=== PATIENT | male | born 2000 | race African-American/Black ===

== ENCOUNTER 2023-04-14 12:41 | Emergency (ER) | payer SELFPAY ==
[2023-04-14] MEDS ORDERED: Tetracaine HCl/PF 0.5% 4 ML Bottle EYEBOTH ONE (12:49)
== END 2023-04-14 14:42 | disposition home or self-care (01) ==
LOC: MW.ED 12:41
DX: S05.92XA Unspecified injury of left eye and orbit, initial encounter (principal); Z79.899 Other long term (current) drug therapy; X58.XXXA Exposure to other specified factors, initial encounter
CPT/HCPCS: 99283; J3490